=== PATIENT | male | born 1985 | race African-American/Black ===

== ENCOUNTER 2016-11-06 12:00 | Emergency (ER) | payer OTHER ==
[~2016-11-06] VITALS: Ht 177.8 cm; Wt 95.3 kg
[~2016-11-06 12:00] MED LIST: ACETAMINOPHEN325 M1 PO; ANASPAZ0.125 MG SL; ATIVAN1 MG PO; BACTRIM DS TAB1 EACH PO; CIPROFLOXACIN500 M1 PO; CIPROFLOXACIN500 M3 PO; COMPAZINE10 MG PO; DILAUDID2 M1 PO; ELAVIL PO; ERYTHROMYCIN250 MG PO; FLAGYL500 MG PO; HYDROCODON-ACE1 EAC7 PO; HYOSCYAMIN125 MCG/5 PO; HYOSCYAMINE0.375 M2 SUBLING; K-DUR 20 MEQ T20 MEQ PO; LEVSIN SL; MIRALAX255 GM PO; NAPROSYN500 MG PO; NOHOMEMEDICATIONS; NORCO 5-325 TA1 EACH PO; ONDANSETRON HCL4 M2 PO; PENICILLIN V P500 MG PO; PENICILLIN VK500 M1 PO; PEPCID PO; PEPCID20 MG PO; PHENERGAN 25 MG25 M1 PO; PHENERGAN 25 MG25 MG PO; PHENERGAN25 MG RE; PHENERGAN50 MG RC; PRILOSEC40 MG PO; REGLAN 10 MG TA10 M1 PO; REGLAN 10 MG TA10 MG PO; TRAMADOL 50 MG50 MG PO; TRANSDERM-SCOP1 EACH TD; ULTRAM 50MG TAB50 MG PO; VICODIN ES TAB1 EACH PO; VICODIN OR; XANAX 0.5 MG0.5 MG; XANAX 1 MG TABLE1 MG PO; ZANTAC 150MG T150 MG PO; ZOFRAN 4 MG ORAL4 M1 DIS; ZOFRAN ODT4 MG; ZOFRAN ODT4 MG DISSOLVE; ZOFRAN ODT4 MG PO; ZOFRAN4 MG; ZOFRAN4 MG PO
[2016-11-06] MEDS ORDERED: TESSALON PERLE100 MG PO (12:25)
== END 2016-11-06 13:09 | disposition home or self-care (01) ==
LOC: ER 12:00
DX: J06.9 Acute upper respiratory infection, unspecified (principal); F10.99 Alcohol use, unspecified with unspecified alcohol-induced disorder; Z90.49 Acquired absence of other specified parts of digestive tract

== ENCOUNTER 2016-11-16 11:07 | Emergency (ER) | payer OTHER ==
[~2016-11-16] VITALS: Ht 177.8 cm; Wt 97.5 kg
[~2016-11-16 11:07] MED LIST changes: +TESSALON PERLE100 MG PO
[2016-11-16] MEDS ORDERED: AFRIN15 ML NS (11:29)
[2016-11-16] MEDS ORDERED: PREDNISONE 20 M20 MG PO (11:29)
== END 2016-11-16 11:49 | disposition home or self-care (01) ==
LOC: ER 11:07
DX: J06.9 Acute upper respiratory infection, unspecified (principal); Z90.89 Acquired absence of other organs

== ENCOUNTER 2016-11-24 07:47 | Emergency (ER) | payer OTHER ==
[~2016-11-24] VITALS: Ht 177.8 cm; Wt 97.5 kg
[~2016-11-24 07:47] MED LIST changes: +AFRIN15 ML NS; +PREDNISONE 20 M20 MG PO
[2016-11-24 08:21] LABS: ABSOLUTE NEUTROPHILS 6.5 thou/uL (1.4-8.2); BASOPHILS 0.7 % (0.0-2.0); EOSINOPHILS 0.8 % (0.0-3.0); HEMATOCRIT 42.2 % (42.0-52.0); HEMOGLOBIN 14.4 gm/dL (14.0-18.0); MCH 28.4 pg (26.0-34.0); MCHC 34.2 % (28.0-37.0); MONOCYTES 8.6 % (1.0-8.0); PLATELET COUNT 443 thou/uL (150-400); POLYS 68.9 % (36.0-66.0); RBC 5.08 mil/uL (4.50-6.00); RDW 12.1 % (10.5-14.5); WBC 9.4 thou/uL (4.0-11.0)
[2016-11-24 08:24] LABS: MANUAL DIFF NO
[2016-11-24 08:39] LABS: CALCIUM 10.1 mg/dL (8.5-10.1); CREATININE 1.2 mg/dL (0.6-1.3); POTASSIUM 3.6 mmol/L (3.5-5.1)
[2016-11-24 08:44] LABS: ALBUMIN 4.7 g/dL (3.4-5.0); DIRECT BILIRUBIN 0.2 mg/dL (<0.1-0.3); TOTAL BILIRUBIN 0.8 mg/dL (<0.1-1.0); TOTAL PROTEIN 9.2 g/dL (6.4-8.2)
[2016-11-24] MEDS ORDERED: NORCO 5-325 TA1 EACH PO (10:24)
[2016-11-24] MEDS ORDERED: ZOFRAN ODT4 MG PO (10:24)
== END 2016-11-24 10:37 | disposition home or self-care (01) ==
LOC: ER 07:47
PROVIDERS: Emergency Medicine
DX: G43.A0 Cyclical vomiting, in migraine, not intractable (principal); R10.9 Unspecified abdominal pain; Z90.49 Acquired absence of other specified parts of digestive tract; F10.99 Alcohol use, unspecified with unspecified alcohol-induced disorder

== ENCOUNTER 2017-04-13 22:15 | Inpatient (IN) | payer OTHER ==
[~2017-04-13] VITALS: Ht 177.8 cm; Wt 81.6 kg
[2017-04-13 23:24] VITALS: BP 144/108
[2017-04-14 02:20] LABS: HEMATOCRIT 43.5 % (42.0-52.0); HEMOGLOBIN 15.3 gm/dL (14.0-18.0); MANUAL DIFF YES; MCH 29.5 pg (26.0-34.0); MCHC 35.1 g/dL (28.0-37.0); MCV 84.2 fL (80.0-100.0); PLATELET COUNT 297 thou/uL (150-400); RBC 5.16 mil/uL (4.50-6.00); RDW 11.7 % (10.5-14.5); WBC 10.9 thou/uL (4.0-11.0)
[2017-04-14 02:28] LABS: CALCIUM 10.1 mg/dL (8.5-10.1); CREATININE 1.3 mg/dL (0.7-1.3); POTASSIUM 3.4 mmol/L (3.5-5.1)
[2017-04-14 02:33] LABS: ALBUMIN 5.3 g/dL (3.4-5.0); TOTAL PROTEIN 9.4 g/dL (6.4-8.2)
[2017-04-14 02:41] LABS: ABSOLUTE NEUTROPHILS 9.5 thou/uL (1.4-8.2); TOTAL CELL COUNT 100
[2017-04-14 03:13] VITALS: BP 146/98
[2017-04-14 03:45] VITALS: BP 151/111
[2017-04-14 08:00] VITALS: BP 137/96
[2017-04-14 16:09] VITALS: BP 154/109
[2017-04-14 17:10] LABS: AMP/METHAMP Negative (Negative); BARBITURATES Negative (Negative); BENZODIAZEPINES POSITIVE (Negative); COCAINE Negative (Negative); METHADONE Negative (Negative); OPIATES POSITIVE (Negative); PCP Negative (Negative); THC POSITIVE (Negative)
[2017-04-14 20:00] VITALS: BP 140/99
[2017-04-15 03:55] VITALS: BP 118/71
[2017-04-15 07:39] VITALS: BP 113/85
[2017-04-15 13:12] VITALS: BP 113/85
== END 2017-04-15 13:44 | disposition home or self-care (01) | DRG 103 ==
LOC: ER 22:15 → EROBS 04-14 02:47 → 3N 04-14 02:47
PROVIDERS: Nurse Practitioner Acute Care; Physician Assistant
PROC: B548ZZA Ultrasonography of Superior Vena Cava, Guidance (ICD-10-PCS; principal; 2017-04-14)
PROC: 02HV33Z Insertion of Infusion Device into Superior Vena Cava, Percutaneous Approach (ICD-10-PCS; principal; 2017-04-14)
DX: G43.A0 Cyclical vomiting, in migraine, not intractable (principal); F12.90 Cannabis use, unspecified, uncomplicated; F17.210 Nicotine dependence, cigarettes, uncomplicated; Z90.49 Acquired absence of other specified parts of digestive tract; Z71.51 Drug abuse counseling and surveillance of drug abuser
CPT/HCPCS: 10795; 27001

== ENCOUNTER 2017-11-08 08:46 | Emergency (ER) | payer OTHER ==
[~2017-11-08] VITALS: Ht 172.7 cm; Wt 90.7 kg
[~2017-11-08 08:46] MED LIST changes: +BENTYL 20 MG TA20 M1 PO; +IBUPROFEN 600600 M1 PO; +PROMS25 WY RECTAL
[2017-11-08 10:08] LABS: CALCIUM 9.8 mg/dL (8.5-10.1); CREATININE 1.1 mg/dL (0.7-1.3); POTASSIUM 3.9 mmol/L (3.5-5.1)
[2017-11-08 10:09] LABS: ABSOLUTE NEUTROPHILS 4.8 thou/uL (1.4-8.2); BASOPHILS 1.7 % (0.0-2.0); EOSINOPHILS 0.5 % (0.0-3.0); HEMOGLOBIN 14.5 gm/dL (14.0-18.0); LYMPHOCYTES 23.9 % (24.0-44.0); MCH 29.1 pg (26.0-34.0); MCHC 33.7 g/dL (28.0-37.0); MCV 86.3 fL (80.0-100.0); MONOCYTES 7.8 % (1.0-8.0); PLATELET COUNT 261 thou/uL (150-400); POLYS 66.1 % (36.0-66.0); RBC 4.98 mil/uL (4.50-6.00); RDW 11.8 % (10.5-14.5); WBC 7.3 thou/uL (4.0-11.0)
[2017-11-08 10:14] LABS: ALBUMIN 4.6 g/dL (3.4-5.0); DIRECT BILIRUBIN 0.2 mg/dL (<0.1-0.3); TOTAL BILIRUBIN 0.6 mg/dL (<0.1-1.0)
[2017-11-08] MEDS ORDERED: ZOFRAN ODT4 MG PO (11:20)
[2017-11-08] MEDS ORDERED: CIPROFLOXACIN500 M1 PO (11:20)
[2017-11-08] MEDS ORDERED: FLAGYL500 MG PO (11:20)
[2017-11-08] MEDS ORDERED: PHENERGAN 25 MG25 M1 PO (11:20)
[2017-11-08 12:31] VITALS: BP 152/95
[2018-07-01] MEDS ORDERED: NAPROSYN500 MG PO (16:59)
[2018-07-15] MEDS ORDERED: PRILOSEC 20 MG20 MG PO (08:55)
[2018-07-15] MEDS ORDERED: BENTYL 10 MG CA10 MG PO (08:55)
[2018-07-15] MEDS ORDERED: ATIVAN1 MG PO (08:55)
== END 2017-11-08 12:34 | disposition home or self-care (01) ==
LOC: ER 08:46
PROVIDERS: Emergency Medicine
DX: J66.2 Cannabinosis (principal); R11.10 Vomiting, unspecified; R10.9 Unspecified abdominal pain; K52.9 Noninfective gastroenteritis and colitis, unspecified; Z90.49 Acquired absence of other specified parts of digestive tract

== ENCOUNTER 2018-02-24 19:48 | Emergency (ER) | payer OTHER ==
[~2018-02-24] VITALS: Ht 177.8 cm; Wt 95.3 kg
[2018-02-24] MEDS ORDERED: TRAMADOL 50 MG50 MG PO (20:29)
[2018-02-24] MEDS ORDERED: HYDROCODONE-AP1 EAC6 PO (20:44)
== END 2018-02-24 20:50 | disposition home or self-care (01) ==
LOC: ER 19:48
DX: S69.92XA Unspecified injury of left wrist, hand and finger(s), initial encounter (principal); W23.0XXA Caught, crushed, jammed, or pinched between moving objects, initial encounter; Y93.89 Activity, other specified; Y92.89 Other specified places as the place of occurrence of the external cause; Y99.8 Other external cause status

== ENCOUNTER 2018-03-24 23:12 | Inpatient (IN) | payer OTHER ==
[~2018-03-24] VITALS: Ht 177.8 cm; Wt 97.5 kg
--- NOTE | ~2018-03-24 | EKG ---
[place] [address] [facility] [place] [address] ELECTROCARDIOGRAM REPORT Name: JAMESANGUS CLARK Room #: 432- ADM IN M.R.#: [id number] Admission: 03/25/18 Attend Phys: Vandana Love Discharge: Date of : 89 Report #: [id number] THIS REPORT FOR: //name// [facility] ED Test Date: 2018-03-24 Test Time: 23:16:58 Pat Name: ANGUS RAMIREZ Department: Room: 432 P Gender: M Haircutter: MZJEN : 1985 Requested By: Vandana Love Order Number: [id number] MD: Brandon Ordaz Measurements Intervals [place] Rate: 76 P: 70 GA: 184 QRS: 51 QRSD: 111 T: -77 QT: 367 QTc: 413 Interpretive Statements Sinus rhythm Probable left atrial enlargement RSR' in V1 or V2, probably normal variant Nonspecific T abnormalities, diffuse leads Borderline ST elevation, anterior leads Compared to ECG 08/24/2017 21:12:17 RSR' in V1 or V2 now present ST (T wave) deviation now present T-wave abnormality still present Electronically Signed On 03-26-2018 7:46:41 CDT by Brandon Ordaz [email or web address] <ELECTRONICALLY SIGNED> By: Brandon Ordaz MD 03/26/18 0746 15 15 Brandon Ordaz MD /EPI
--- NOTE | ~2018-03-24 | P ---
[facility] [place] [address] PROCEDURE REPORT Name: ANGUS RAMIREZ [facility] Room #: 432-P [facility] IN M.R.#: [id number] Admission: 03/25/18 Attend Phys: Vandana Love Discharge: Date of : 89 Report #: [id number] THIS REPORT FOR: //name// CC: Dr. Issac WILLOUGHBY physician/PCP Vandana Love DATE OF SERVICE: 03/25/2018 PROCEDURE PERFORMED: Upper endoscopy with biopsies. HISTORY OF PRESENT ILLNESS: The patient is a 32-year-old male with a history of intermittent recurrent abdominal pain, nausea and vomiting. Apparently, he had his gallbladder removed 4 years ago and he states his symptoms began after this. Symptoms began earlier in the week and became progressively worse. Reportedly, he had an upper endoscopy or possible ERCP done in 2013 at [facility]. I do not have a copy of these results. Denies any dysphagia. CT scan of the abdomen and pelvis was negative. There is a possibility of cyclic vomiting, we have discussed in the past. 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 PROCEDURE: The risks and benefits of the procedure were explained to the patient, those risks including, but not limited to bleeding, perforation, and the risk of sedation. He understood these risks and gave informed consent. Sedation was given using ketamine and propofol per anesthesia. Next, using a standard Olympus upper endoscope, the scope was placed in the patient's mouth and advanced under direct vision through the esophagus, stomach and into the second portion of the duodenum. The upper and mid esophagus were normal in appearance. Grade B erosive esophagitis was noted at the GE junction. Upon entering the stomach, a small hiatal hernia was noted. There was a mild gastritis in the gastric body and antrum, somewhat more prominent gastritis in the upper body and fundus. Biopsies were obtained. No evidence of ulcerations or erosions. No bleeding was noted. The pylorus was normal and patent. The duodenal bulb, first and second portion were normal other than a mild duodenitis in the proximal bulb. At this point, the scope was then withdrawn and the procedure terminated. The patient tolerated the procedure well. IMPRESSION: 1. Gastritis. 2. Small hiatal hernia. 3. Grade B erosive esophagitis. 4. Mild duodenitis. RECOMMENDATIONS: 1. Await biopsy results. 2. Recommend daily PPI therapy and we will add liquid Carafate at this time. [address] [address] PROCEDURE REPORT Name: ANGUS RAMIREZ CLARK Room #: 432-P [facility] IN .R.#: [id number] Admission: 03/25/18 Attend Phys: Vandana Love Discharge: Date of : 89 Report #: [id number] We will advance diet as tolerated. The patient does have mild elevation in liver function tests. He has had a previous cholecystectomy, may consider MRCP in the future. Thank you for allowing me to participate in his care. By: [id number] Ovidio Ambrosio MD /nicholas
[~2018-03-24 23:12] MED LIST changes: +HYDROCODONE-AP1 EAC6 PO
[2018-03-24 23:26] VITALS: BP 165/117
[2018-03-24 23:51] LABS: ABSOLUTE NEUTROPHILS 6.5 thou/uL (1.4-8.2); BASOPHILS 0.5 % (0.0-2.0); EOSINOPHILS 0.4 % (0.0-3.0); HEMATOCRIT 43.4 % (42.0-52.0); HEMOGLOBIN 15.2 gm/dL (14.0-18.0); LYMPHOCYTES 16.1 % (24.0-44.0); MCH 29.4 pg (26.0-34.0); MCHC 35.1 g/dL (28.0-37.0); MCV 83.9 fL (80.0-100.0); PLATELET COUNT 323 thou/uL (150-400); RBC 5.18 mil/uL (4.50-6.00); RDW 11.8 % (10.5-14.5); WBC 8.3 thou/uL (4.0-11.0)
[2018-03-25 00:01] LABS: ANION GAP 19 mmol/L (7-16); BUN 49 mg/dL (7-18); CALCIUM 10.2 mg/dL (8.5-10.1); CHLORIDE 97 mmol/L (98-107); CO2 19 mmol/L (21-32); GLUCOSE 175 mg/dL (74-106); POTASSIUM 3.3 mmol/L (3.5-5.1); SODIUM 135 mmol/L (136-145)
[2018-03-25 00:09] LABS: ALBUMIN 5.4 g/dL (3.4-5.0); LIPASE 62 U/L (73-393); SGOT 48 U/L (15-37); SGPT 110 U/L (30-65); TOTAL BILIRUBIN 1.7 mg/dL (<0.1-1.0); TOTAL PROTEIN 9.4 g/dL (6.4-8.2); TROPONIN-I < 0.04 ng/mL (<0.06)
[2018-03-25 00:40] VITALS: BP 131/107
[2018-03-25 02:30] VITALS: BP 151/95
[2018-03-25 06:50] LABS: ALBUMIN 4.8 g/dL (3.4-5.0); CALCIUM 9.4 mg/dL (8.5-10.1); CREATININE 1.2 mg/dL (0.7-1.3); POTASSIUM 4.9 mmol/L (3.5-5.1); TOTAL BILIRUBIN 1.1 mg/dL (<0.1-1.0)
[2018-03-25 09:46] LABS: DIRECT BILIRUBIN 0.3 mg/dL (<0.1-0.3)
[2018-03-25 13:40] VITALS: BP 174/101
[2018-03-25 14:20] VITALS: BP 189/89
[2018-03-25 16:40] VITALS: BP 129/97
[2018-03-25 20:00] VITALS: BP 120/72
[2018-03-26 04:00] VITALS: BP 113/64
[2018-03-26 08:04] VITALS: BP 133/82
[2018-03-26] MEDS ORDERED: PANTOPRAZOLE SO40 M1 PO (09:29)
[2018-03-26] MEDS ORDERED: CARAFATE 11 GM/10 M1 PO (09:29)
[2018-03-26 10:51] VITALS: BP 133/82
[2018-03-26 11:00] VITALS: BP 133/82
[2018-03-26 12:35] VITALS: BP 133/82
== END 2018-03-26 11:29 | disposition home or self-care (01) | DRG 381 ==
LOC: ER 23:12 → 4E 03-25 00:35 → EROBS 03-25 00:35 → 4E 03-25 02:14
PROVIDERS: Emergency Medicine; Nurse Practitioner Family
PROC: 0DB68ZX Excision of Stomach, Via Natural or Artificial Opening Endoscopic, Diagnostic (ICD-10-PCS; principal; 2018-03-25)
DX: K22.10 Ulcer of esophagus without bleeding (principal); N17.9 Acute kidney failure, unspecified; E80.6 Other disorders of bilirubin metabolism; K44.9 Diaphragmatic hernia without obstruction or gangrene; K29.70 Gastritis, unspecified, without bleeding; K29.80 Duodenitis without bleeding; R74.8 Abnormal levels of other serum enzymes; F12.90 Cannabis use, unspecified, uncomplicated; Z90.49 Acquired absence of other specified parts of digestive tract
CPT/HCPCS: 10084; 50010; 70005

== ENCOUNTER 2018-04-07 14:28 | Emergency (ER) | payer OTHER ==
[~2018-04-07] VITALS: Ht 177.8 cm; Wt 97.5 kg
[~2018-04-07 14:28] MED LIST changes: +CARAFATE 11 GM/10 M1 PO; +PANTOPRAZOLE SO40 M1 PO
[2018-04-07] MEDS ORDERED: HYDROCODONE-AP1 EAC6 PO (14:37)
[2018-04-07] MEDS ORDERED: NAPROSYN500 MG PO (14:37)
== END 2018-04-07 15:03 | disposition home or self-care (01) ==
LOC: ER 14:28
DX: K02.9 Dental caries, unspecified (principal)

== ENCOUNTER 2018-07-25 23:34 | Emergency (ER) | payer OTHER ==
[~2018-07-25 23:34] MED LIST changes: +BENTYL 10 MG CA10 MG PO; +PRILOSEC 20 MG20 MG PO
== END 2018-07-26 09:25 ==
LOC: ER 23:34
DX: S71.101A Unspecified open wound, right thigh, initial encounter (principal); W34.00XA Accidental discharge from unspecified firearms or gun, initial encounter; Y93.89 Activity, other specified; Y92.89 Other specified places as the place of occurrence of the external cause; Y99.8 Other external cause status